=== PATIENT | female | born 1970 | race Caucasian/White ===

== ENCOUNTER → 2020-09-15 | Outpatient (CLI) | payer OTHER ==
--- NOTE | 2020-09-15 11:32 | KCIC ---
Bilateral digital screening mammograms: Reason for examination: Routine screening. No previous exams for comparison. New baseline. Interpretation was made with the benefit of CAD. The skin and nipples show no abnormalities. No abnormal axillary lymph nodes are seen. The breast par enchyma shows scattered fibroglandular density. (Breast density: Category B.) There is a small 6.4 mm nodule present at the 12:00 position 14 cm from the nipple in the left breast which may represent an intramammary lymph node but further evaluation with ultrasound is recommended. There is also a small nodule in the lower inner quadrant of the right breast at approximately the 4:00 position 11 cm from the nipple measuring 5.7 mm in greatest dimension. There are no other dominant masses, suspicious ca lcifications or architectural distortions. Impression: Small nodular densities at the 12:00 position 14 cm from the nipple in the left breast measures 6.4 m m in size and at 4:00 position of the right breast 11 cm from the nipple measuring 5.7 mm in size. Re commend further evaluation with bilateral breast ultrasound. BI-RADS Category 0: Incomplete. Needs additional imaging evaluation. "Our facility is accredited by the [employer] Mammography Program." This patient's information has been entered into a reminder system for the patient to be notified wit h the results of her examination and a target date for the next mammogram. Electronically signed by: Avis Infante MD (09/15/2020 11:29 AM) [email or web address]
== END ==
LOC: KCIC MAMMO 08:46
PROVIDERS: ATTEND Physician Assistant Medical
DX: Z12.31 Encounter for screening mammogram for malignant neoplasm of breast (principal)
CPT/HCPCS: 77067

== ENCOUNTER → 2020-09-23 | Outpatient (CLI) | payer OTHER ==
--- NOTE | 2020-09-23 11:18 | KCIC ---
US BREAST BILAT Clinical Indication: Reason: CALLBACK ABNORMAL MAMM / Spl. Instructions: / History: Comparison: Bilateral mammogram 09/15/2020. TECHNIQUE: Real-time ultrasound imaging of the right and left breast is performed. Findings: Right: The 3:00 to 6:00 position is scanned. At the 4:00 position 11 cm from the nipple there is no focal sonographic abnormality. There are no ab normal axillary lymph nodes. Left: The 11:00 to 1:00 position is scanned. At the 12:00 position 14 cm from the nipple no focal sonographic abnormality is identified. There are no abnormal axillary lymph nodes. IMPRESSION: 1. Bilateral ultrasound does not demonstrate any abnormality in the areas of concern on mammogram. R ecommend bilateral diagnostic mammogram in 6 months to assess stability. 2. BI-RADS Category 3, probably benign. Electronically signed by: Yamil Jaimes MD (09/23/2020 11:16 AM) [email or web address]
== END ==
LOC: KCIC US 10:27
PROVIDERS: ATTEND Physician Assistant Medical
DX: R92.8 Other abnormal and inconclusive findings on diagnostic imaging of breast (principal)
CPT/HCPCS: 76641